=== PATIENT | female | born 1955 | race Caucasian/White ===

== ENCOUNTER → 2018-04-11 | Outpatient (CLI) | payer OTHER ==
[~2018-04-11] MED LIST: ASPI-496 PO; ATOR40TA78 PO; CELE200C PO; CHOL200024 PO; OMEP1CAP14 PO; TRAZ150T62 PO
[2018-04-11 09:46] LABS: MICROSCOPIC INDICATED
[2018-04-11 09:47] LABS: CULTURE INDICATED? YES
== END | disposition home or self-care (01) ==
LOC: STAR 08:19
PROVIDERS: ATTEND Orthopaedic Surgery
DX: Z01.818 Encounter for other preprocedural examination (principal); M17.12 Unilateral primary osteoarthritis, left knee; R00.1 Bradycardia, unspecified
CPT/HCPCS: 81001; 87077; 87081; 87086; 87147; 87186; 93005

== ENCOUNTER 2018-06-15 05:16 | Inpatient (IN) | payer OTHER ==
[~2018-06-15] VITALS: Ht 175.3 cm; Wt 87.1 kg
[~2018-06-15 05:16] MED LIST changes: +MAGNESIUM PO
[2018-06-15] MEDS ORDERED: LACTATED RINGERS 1,000 ML IV SCH (05:51)
[2018-06-15] MEDS ORDERED: SCOPOLAMINE PATCH, 1.5MG PATCH.TD72 TD ONE (06:00)
[2018-06-15] MEDS ORDERED: OxyconTIN ER 10 MG TAB.ER PO ONE (06:00)
[2018-06-15] MEDS ORDERED: GABAPENTIN 300 MG CAPSULE PO ONE (06:00)
[2018-06-15] MEDS ORDERED: ACETAMINOPHEN 500 MG TABLET PO ONE (06:00)
[2018-06-15] MEDS ORDERED: MIDAZOLAM 1 MG/ML, 2ML ONE (06:02)
[2018-06-15] MEDS ORDERED: FENTANYL PF 250 MCG/5ML ONE ×2 (06:02→07:35)
[2018-06-15] MEDS ORDERED: PROPOFOL 10 MG/ML, 20ML ONE (06:06)
[2018-06-15] MEDS ORDERED: DEXAMETHASONE 4 MG/ML, 1ML ONE ×2 (06:08)
[2018-06-15] MEDS ORDERED: ONDANSETRON 2MG/ML, 2ML ONE (06:09)
[2018-06-15] MEDS ORDERED: ROCURONIUM 10MG/ML,5ML ONE (06:09)
[2018-06-15] MEDS ORDERED: TRANEXAMIC ACID 100 MG/ML, 10ML ONE (06:37)
[2018-06-15] MEDS ORDERED: VANCOMYCIN 1,000 MG ONE (06:51)
[2018-06-15] MEDS ORDERED: SUGAMMADEX 200 MG/2 ML IVPush ONE (06:51)
[2018-06-15] MEDS ORDERED: DIPHENHYDRAMINE 25 MG CAPSULE PO PRN (07:00)
[2018-06-15] MEDS ORDERED: ZOLPIDEM 5MG TABLET PO PRN (07:00)
[2018-06-15] MEDS ORDERED: OXYcodone 5 MG/5 ML ORAL.SOL UDC PO PRN (07:00)
[2018-06-15] MEDS ORDERED: ONDANSETRON ODT 8 MG PO PRN (07:00)
[2018-06-15] MEDS ORDERED: MEPERIDINE/PF 25MG/0.5ML IVPush PRN (07:00)
[2018-06-15] MEDS ORDERED: PROMETHAZINE 25 MG SUPP PR PRN (07:00)
[2018-06-15] MEDS ORDERED: FENTANYL PF 100 MCG/2ML IV PRN (07:00)
[2018-06-15] MEDS: HYDROcodone/APAP 10/325 MG TABLET PO SCH ×4 (07:00→22:00)
[2018-06-15] MEDS ORDERED: ONDANSETRON 4 MG TABLET PO PRN (07:00)
[2018-06-15] MEDS ORDERED: DIAZEPAM 5 MG TABLET PO PRN (07:00)
[2018-06-15] MEDS ORDERED: BISACODYL 10 MG SUPP PR PRN (07:00)
[2018-06-15] MEDS ORDERED: hydrALAzine 20 MG/ML, 1ML IV PRN (07:00)
[2018-06-15] MEDS ORDERED: MAGNESIUM HYDROXIDE 8%, 30ML UDC PO PRN (07:00)
[2018-06-15] MEDS ORDERED: SENNA/DOCUSATE TABLET PO PRN (07:00)
[2018-06-15] MEDS ORDERED: PROMETHAZINE 25 MG/ML, 1ML IM PRN ×3 (07:00)
[2018-06-15] MEDS ORDERED: LORazepam 1MG TABLET PO PRN (07:00)
[2018-06-15] MEDS ORDERED: PROMETHAZINE 12.5 MG SUPP PR PRN ×2 (07:00)
[2018-06-15] MEDS ORDERED: ONDANSETRON 2MG/ML, 2ML IV PRN ×2 (07:00)
[2018-06-15] MEDS ORDERED: ACETAMINOPHEN 650 MG/20.3 ML UDC PO PRN (07:00)
[2018-06-15] MEDS ORDERED: MORPHINE SULFATE 4 MG/ML, 1ML IV PRN (07:00)
[2018-06-15] MEDS ORDERED: PROMETHAZINE 25 MG/ML, 1ML IV PRN (07:00)
[2018-06-15] MEDS ORDERED: LABETALOL 5MG/ML, 20ML IV PRN (07:00)
[2018-06-15] MEDS ORDERED: MORPHINE SULFATE 4 MG/ML, 1ML IVPush PRN (07:00)
[2018-06-15] MEDS ORDERED: ASPI-650 PO (07:07)
[2018-06-15] MEDS ORDERED: BUPIVACAINE/PF-EPI 0.5% 1:200K ONE (08:33)
[2018-06-15] MEDS ORDERED: OXYcodone 5 MG/5 ML ORAL.SOL UDC ONE (09:08)
[2018-06-15] MEDS ORDERED: HYDROmorphone 2 MG/ML, 1ML ONE (09:12)
[2018-06-15] MEDS: HYDROmorphone 1 MG/ML, 1ML IV PRN ×2 (09:15→09:23)
[2018-06-15] MEDS ORDERED: MEPERIDINE/PF 50 MG/ML ONE (09:52)
[2018-06-15 10:40] VITALS: BP 131/78
[2018-06-15] MEDS: D5%-0.45% NACL 1,000 ML IV SCH ×2 (11:04→22:35)
[2018-06-15] MEDS: DOCUSATE 100 MG CAPSULE PO SCH ×2 (11:10→21:00)
[2018-06-15] MEDS: CHOLECALCIFEROL 1,000 UNIT TABLET PO SCH (11:10)
[2018-06-15 13:45] VITALS: BP 147/82
[2018-06-15] MEDS ORDERED: ONDANSETRON ODT 4 MG ONE (17:53)
[2018-06-15] MEDS: ASPIRIN 325 MG TABLET EC PO SCH (17:54)
[2018-06-15 18:55] VITALS: BP 156/78
[2018-06-15] MEDS: ATORVASTATIN 40 MG TABLET PO SCH (21:00)
[2018-06-15] MEDS: TRAZODONE 150MG TABLET PO SCH (21:00)
[2018-06-16 00:15] VITALS: BP 103/67
[2018-06-16] MEDS: ATORVASTATIN 40 MG TABLET PO SCH (00:52)
[2018-06-16] MEDS: HYDROcodone/APAP 10/325 MG TABLET PO SCH ×3 (00:53→09:51)
[2018-06-16] MEDS: TRAZODONE 150MG TABLET PO SCH (00:53)
[2018-06-16] MEDS: DOCUSATE 100 MG CAPSULE PO SCH ×2 (00:53→08:34)
[2018-06-16 03:48] VITALS: BP 98/62
[2018-06-16] MEDS: ASPIRIN 325 MG TABLET EC PO SCH (05:49)
[2018-06-16] MEDS ORDERED: KETOROLAC 30 MG/1 ML IV SCH (07:00)
[2018-06-16 08:22] VITALS: BP 92/57
[2018-06-16] MEDS: CHOLECALCIFEROL 1,000 UNIT TABLET PO SCH (08:33)
[2018-06-16] MEDS: D5%-0.45% NACL 1,000 ML IV SCH (08:34)
[2018-06-16 10:18] VITALS: BP 117/70
== END 2018-06-16 11:00 | disposition home or self-care (01) | DRG 470 ==
LOC: OUT 05:16 → ORIP 06:53 → 4NOR 10:26 → DCLOUNGE 06-16 10:49
PROVIDERS: ADMIT Orthopaedic Surgery; ATTEND Orthopaedic Surgery
PROC: 0SRD069 Replacement of Left Knee Joint with Oxidized Zirconium on Polyethylene Synthetic Substitute, Cemented, Open Approach (ICD-10-PCS; principal; 2018-06-15 07:00)
DX: M17.12 Unilateral primary osteoarthritis, left knee (principal); Z88.0 Allergy status to penicillin; Z88.1 Allergy status to other antibiotic agents
CPT/HCPCS: C1713; G0378; J1100; J1170; J1885; J2175; J2250; J2405; J2704; J3010; J3370; C1776; J7120